=== PATIENT | male | born 1935 | race Caucasian/White ===

== ENCOUNTER 2023-08-22 09:16 | Emergency (ER) | payer MEDICARE, SELFPAY ==
[2023-08-22 09:25] VITALS: BP 156/91; PULSE 88; RESP 20; TEMP 36.1; O2SAT 97
[2023-08-22 09:33] VITALS: BMI 27.1
--- NOTE | 2023-08-22 09:37 | ED_ITS ---
HPI - Back Pain/Injury General Time Seen by Provider: 09:37 Date Seen: 08/22/23 Chief Complaint: Back Injury/Pain Stated Complaint: Back pain, nausea Time Seen by Provider: 08/22/23 09:18 Source: patient, family (daughter brought him in), RN notes reviewed and old records reviewed Mode of arrival: ambulatory Limitations: no limitations History of Present Illness HPI Narrative: This 88-year-old male is somewhat ambulatory into the ED accompanied by his daughter for severe pain. He has had progressive worsening pain in his back. He was given Percocet yesterday, did take this overnight, was up at 2:00 a.m. and took 1, had another 1 at 6:00 a.m. and absolutely did nothing for his pain. He has been diagnosed with spinal metastases of unknown primary. He is sc heduled for a liver biopsy next week. He is denying any radiculopathy down his legs. His primary pain is in his low back, especially right-sided, is wrapping around that right iliac crest area where he is pointing to. He is constipated, has been taking daily MiraLax and Ex-Lax, has tried suppositories. He is not getting any bowel results. He does not remember the last time he had a bowel movement. He has had some nausea but no vomiting. He states he really is not eating much. He denies any chest pain, no difficulty breathing, no chest wall pain, no shortness of breath. He denies any numbness tingling or incoordination of his lower extremities, no pain radiating down the legs. They state he had his imaging done in [place] and then in [place] at [facility]. elicited complaint: back pain Related Data Previous Rx's Medication Instructions Recorded hydromorphone 2 mg tablet 2 mg PO Q4-6H PRN pain #20 tabs 08/22/23 (Dilaudid) Allergies Allergy/AdvReac Type Severity Reaction Status Date / Time No Known Allergies Allergy Verified 08/22/23 13:10 PFSH PFS Social History Smoking Status: Former smoker Do you use any of these nicotine containing products: None Second hand tobacco smoke exposure: No How often do you have a drink containing alcohol: never AUDIT-C Alcohol total score: 0 Non-prescribed substance use: denies use service: No Exam Const: Vital Signs, click to edit/add: Vital Signs - 24 hr 08/22/23 09:25 08/22/23 11:51 08/22/23 12:25 Temperature 97.0 F L Pulse Rate [Pulse Oximeter] 88 80 Respiratory Rate 20 14 Blood Pressure [Ri ght Upper Arm] 156/91 H 138/73 Pulse Oximetry 97 93 92 Oxygen Delivery Me thod Room Air Room Air Course Course ED Course: We will establish an IV, see if he responds to some IV pain medicine with fentanyl 50 mcg, will treat with some Zofran 4 mg. Will start some IV fluids. Reviewed with them that I will look at his imaging reports from outside of here, make decision if he needs abdominal CT versus flat and upright. My inclination is likely flat and upright based on his nontender abdomen. Will check some baseline labs on him, work on pain control imminently. He will be monitored on pulse oximetry given that we are giving him IV narcotics. Reevaluation(s) Time of Reevaluation #1: 11:51 Reevaluation #1: Patient had no relief from the fentanyl. Did discuss hospitalization for pain management. Subsequently reviewed this with Dr. Crump our hospitalist. He can admit the patient for pain management but is worried about disposition. We have no ability to get a tissue diagnosis, cannot get the patient for any palliative radiation. We will talk to facilities that have the capacity to maybe treat him further. Will proceed with IV Dilaudid 0.5 mg. Did review that the flat and upright shows no constipation, he really does not have any significant stool buildup. We reviewed that is poor oral intake is likely reflected in diminished bowel output. Time of Reevaluation #2: 12:56 Reevaluation #2: Patient was able to get himself up and ambulate to the bathroom. He still admits there was pain but it is much better, can actually move without excruciating pain, obviously the IV Dilaudid significantly helped. We are going to try to give him a dose of Tylenol, 1000 mg, and an oral dose of Dilaudid 2 mg right now. Watching him walk back from the bathroom with his walker in get himself into bed, do wonder if perhaps he might be able to discharge to home on dilaudid for ongoing outpatient workup of this malignancy. Have reviewed with them the concerns my hospitalists has about pain management and final disposition, ongoing cancer workup. Have also reviewed with them that I have been in touch with the hospitalist at [facility]. There was concern on his part whether not anything would happen over the weekend. It does sound is if they would like to proceed with continuing on this evaluation for his cancer. They understand that we can not do any palliative treatments with radiation to his spine given there is no tissue diagnosis. He would ultimately half to have a radiation oncology evaluation as well. None of that can happen here in our facility. Likewise, a liver biopsy cannot be arranged inpatient here. The hospitalist is worried that none of this would happen on the weekend at [facility]. He did share with me that the patient's PSA was elevated at 9.66. He wanted radiation oncology as well as Oncology routed into the phone call as well, they will be calling back. My initial conversation with him happened around 12:19 p.m.. Time of Reevaluation #3: 14:22 Reevaluation #3: Patient is feeling much better, feels like he can mobilize. He has been able to sit up. He and his daughter are comfortable going home, he does live independently but she states there is family that can assist and watch out for him. We discussed side effects and risk factors of narcotics including but not limited to confusion, increased risk of falls, constipation. He is to stay on his bowel regimen. Consultations Consultation #1: Did speak with Oncology on-call through [facility] as well as the hospitalist from [facility]. We reviewed the case. The oncologist is worried about patient's social safety, these are new drugs for the patient, could overdose, could be in an unsafe environment. If patient were transferred to [facility], liver biopsy could be considered as a possibility. We did not talk to Radiation Oncology at this point. Right now patient is wait listed, will continue to work on pain management in assess safety on this new narcotic here. I can also talk to his daughter about the possibility of close family involvement. I will let them know we do feel he can discharge to home. Time: 13:14 Vital Signs Vital signs: Initial Vital Signs Temperature 97.0 F L 08/22/23 09:25 Temperature Source Temporal Artery Scan 08/22/23 09:25 Pulse Rate 88 08/22/23 09:25 Pulse Rhythm Regular 08/22/23 09:25 Respiratory Rate 20 08/22/23 09:25 Blood Pressure 156/91 H 08/22/23 09:25 Blood Pressure Mean 112 H 08/22/23 09:25 Blood Pressure Position Supine 08/22/23 09:25 Pulse Oximetry 97 08/22/23 09:25 Oxygen Delivery Method Room Air 08/22/23 09:25 Vital Signs Temperature 97.0 F L 08/22/23 09:25 Pulse Rate 88 08/22/23 09:25 Respiratory Rate 20 08/22/23 09:25 Blood Pressure 156/91 H 08/22/23 09:25 Pulse Oximetry 97 08/22/23 09:25 Oxygen Delivery Method Room Air 08/22/23 09:25 Temperature 97.0 F L 08/22/23 09:25 Pulse Rate 80 08/22/23 12:25 Respiratory Rate 14 08/22/23 12:25 Blood Pressure 138/73 08/22/23 12:25 Pulse Oximetry 92 08/22/23 12:25 Oxygen Delivery Method Room Air 08/22/23 12:25 Medications Administered Medications: Discontinued Medications Generic Name Dose Route Start Last Admin Trade Name Colemanq PRN Reason Stop Dose Admin Acetaminophen 1,000 mg 08/22/23 12:57 08/22/23 13:19 Acetaminophen 500 Mg Tablet PO 08/22/23 12:58 1,000 mg ONCE ONE Administration Hydromorphone HCl 0.5 mg 08/22/23 11:51 08/22/23 12:11 Hydromorphone 0.5 Mg/0.5 Ml Inj IVP 08/22/23 11:52 0.5 mg ONCE ONE Administration Hydromorphone HCl 2 mg 08/22/23 12:57 08/22/23 13:19 Hydromorphone 2 Mg Tablet PO 08/22/23 12:58 2 mg ONCE ONE Administration MDM - Back Pain/Injury Medical Records Attestation: I reviewed the patient's medical records. Medical records narrative: MRI from thoracic spine done on August 17 showing widespread osseous metastases throughout the thoracic spine and visualized ribs. [id number] pathologic T12 compression fracture. Ventral epidural tumor extension mildly narrows the lateral recess and moderately severely narrows the right neural foramina in at T12-L1. Multilevel thoracic spondylosis without high-grade canal stenosis. Findings suggesting mediastinal lymphadenopathy. Chest CT is offered for further evaluation. MRI from a lumbar spine showing diffuse osseous metastasis disease. Findings worrisome for posterior cortical breakthrough at the T12 level with epidural metastatic extension into the right lateral recess and neural foramina. This could be better cyst with dedicated thoracic spine MRI with contrast. Findings concerning for dorsal epidural metastatic spread at the L3-4 level contributing to moderate spinal canal narrowing. Chronic sup erior endplate compression deformities of L3-L4 and lesser degree L5. Moderate to severe multilevel spondylosis Lab Data Attestation: I reviewed the patient's lab results. Labs: Lab Results 08/22/23 Range/Units 10:35 WBC 6.94 (4.50-11.00) K/uL RBC 4.50 (4.30-5.90) m/uL Hgb 13.6 (13.5-17.5) gm/dL Hct 41.1 (37.0-53.0) % MCV 91 (80-100) fL MCH 30 (26-34) pg MCHC 33 (32-36) gm/dL RDW Coeff of Vijay 13.0 (11.5-15.5) % Plt Count 202 (140-440) K/uL Neut % (Auto) 85.7 H (42.0-72.0) % Lymph % (Auto) 10.8 L (20-44) % [place] % (Auto) 3.0 (0.0-11.0) % Eos % (Auto) 0.1 (0.0-7.0) % Baso % (Auto) 0.1 (0.0-3.0) % Neut # (Auto) 5.90 (1.7-7.0) K/uL Lymph # (Auto) 0.70 L (0.90-2.90) K/uL [place] # (Auto) 0.20 (0.00-0.90) K/UL Eos # (Auto) 0.01 (0.00-0.50) K/uL Baso # (Auto) 0.01 (0.00-0.30) K/uL Abs Immat Gran (auto) 0.02 (0.00-0.30) K/uL Imm/Tot Granulo (auto) 0.3 % Sodium 135 (135-149) mmol/L Potassium 4.1 (3.6-5.1) mmol/L Chloride 100 (96-114) mmol/L Carbon Dioxide 29 (20-32) mmol/L Anion Gap 6 L (7-15) mEq/L BUN 28 (7-30) mg/dL Creatinine 0.8 (0.5-1.5) mg/dL Estimated Creat Clear 58.20 Estimated GFR 86 ml/min Glucose 108 (60-115) mg/dL Lactate 1.4 (0.5-1.9) mmol/L Calcium 9.4 (8.4-10.6) mg/dL Total Bilirubin 1.6 H (0.1-1.5) mg/dL AST 165 H (12-35) U/L ALT 258 H (4-50) U/L Alkaline Phosphatase 279 H (40-150) U/L Total Protein 7.0 (6.0-8.3) g/dL Albumin 3.9 (3.3-5.0) g/dL Lipase 20 L (23-300) U/L Imaging Data Abdominal x-ray: Attestation: I have reviewed the pertinent imaging results. My impression: I see no evidence of obstruction or significant stool burden on my preliminary review. Radiologist's impression: Patient: CONNIE ELLIS Facility:?[facility] Patient ID:?[id number] Site Patient ID:?[id number]. Site :?[id number] Study:?XRay Abdomen 2V-08/22/2023 11:09:36 AM Ordering Physician:Audie Whitney Final Report: Indication: Constipation. Severe back pain. Technique: Two views Comparison: None Findings: Nondilated bowel. No significant colonic fecal burden. Clear lung bases. Thoracolumbar spondylosis. Bilateral pelvic calcifications, most likely vascular in nature. Impression: No radiographic finding to explain the clinical history. 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 Take Tylenol 1000 mg 3 times a day baseline for pain. Supplement with the dilaudid for more severe pain, follow prescription instructions. Need to stay on MiraLax 17 g daily, the stool softener. Can also consider use of senna, 1-2 tabs once to twice a day for constipation. Can also use suppositories or enemas as needed for constipation. Need to keep follow-up appointments for your PET scan and your liver biopsy. Should you develop neurologic changes of your lower extremities as we discussed, have uncontrolled pain or further concerns, please seek re-evaluation. Activity Level: Activity as Tolerated Prescriptions: New hydromorphone [Dilaudid] 2 mg tablet 2 mg PO Q4-6H PRN (Reason: pain) Qty: 20 0RF Follow Up/Referrals: Florentin Clarke MD [Staff Physician] - Stand Alone Forms: [employer] Info Instructions
--- NOTE | 2023-08-22 10:10 | CRLHL7_ITS ---
For Patients: As a result of the Century Cures Act, medical imaging exams and procedure reports are released immediately into your electronic medical record. You may view this report before your referring provider. If you have questions, please contact your health care provider. Indication: Constipation. Severe back pain. Technique: Two views Comparison: None Findings: Nondilated bowel. No significant colonic fecal burden. Clear lung bases. Thoracolumbar spondylosis. Bilateral pelvic calcifications, most likely vascular in nature. Impression: No radiographic finding to explain the clinical history. Dictated by Jatinder Goodman MD @ 08/22/2023 11:22:03 AM (Electronically Signed)
--- OUTSIDE RECORDS SUMMARY | 2023-08-22 10:15 | XMS_ITS | Clinical Summary ---
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 Medications Medication Sig Dispensed Refills Start Date End Date Status clotrimazole-betam ethasone cream (LOTRISONE) 1-0.05 % creamIndications:T inea corporis Apply topically to affected area(s) 2 times daily. 45 g 0 11/01/2021 Active hydroCHLOROthiazid e 12.5 mg tabletIndications: Essential hypertension Take 1 Tablet (12.5 mg) by mouth once daily. 90 Tablet 3 12/03/2022 Active fluticasone (50 mcg per actuation) nasal solution (FLONASE)Indicatio ns:Eustachian tube dysfunction, left Inhale 2 Sprays to both nostrils once daily. 16 g 0 01/27/2023 Active cetirizine (ZYRTEC) 10 mg tabletIndications: Eustachian tube dysfunction, left Take 1 Tablet (10 mg) by mouth once daily. 60 Tablet 0 01/27/2023 Active methylPREDNISolone (MEDROL DOSEPAK) 4 mg tabletIndications: Back strain, initial encounter Take by mouth as instructed per packaging: take all tablets together with breakfast. 21 Tablet 0 07/29/2023 Active cyclobenzaprine (FLEXERIL) 5 mg tabletIndications: Back strain, initial encounter Take 1 Tablet (5 mg) by mouth two times daily. 20 Tablet 0 07/29/2023 Active gabapentin (NEURONTIN) 100 mg capsuleIndications :Severe back pain Take 1 Capsule (100 mg) by mouth three times daily. 90 Capsule 2 08/11/2023 4 Active oxyCODONE 10 mg tabletIndications: Metastatic cancer to bone (HC) Take 1 Tablet (10 mg) by mouth every 4 hours if needed for Pain. 20 Tablet 0 08/18/2023 Active oxyCODONE-acetamin ophen, 7.5-325 mg, (Percocet) per tabletIndications: Pain from bone metastases (HC),Metastatic cancer to bone (HC) Take 1 Tablet by mouth every 4 hours if needed for Pain. 10 Tablet 0 08/21/2023 Active oxyCODONE (ROXICODONE) 5 mg immediate release tabletIndications: Severe back pain,Pain from bone metastases (HC) Take 1 Tablet (5 mg) by mouth every 4 hours if needed for Pain. 30 Tablet 0 08/14/2023 4 Discontinue d(*Med ineffective ) Hospital, Clinic, or Other Facility Administered Medication Ordered Dose Route Frequency Start Date End Date Status ketorolac 30 mg injection (TORADOL)Indications:Severe back pain 30 mg IM ONE TIME 08/11/2023 08/11/2023 Ended Active Problems Problem Noted Date Diagnosed Date Essential hypertension 03/01/2020 Other seborrheic keratosis 04/02/2013 Nocturia 04/02/2013 Encounters Date Type Department Care Team Description 08/18/2023 Orders Only [facility] [address] [facility] [address] Gayle Leung DO <No scans attached> 08/17/2023 10:26 AM [facility]TER - 08/17/2023 11:59 PM [facility] Hospital Encounter [facility] [address] [facility] [place] [address] Gayle Leung DO Pain from bone metastases (HC); Metastatic cancer to bone (HC) 08/17/2023 Orders Only [facility] [address] [place] [address] Gayle Leung DO Lab 08/17/2023 Travel 08/16/2023 Nurse Triage [facility] [address] [facility] [address] Gayle Leung DO Back Pain 08/16/2023 Nurse Triage [facility] [address] [facility] [address] Gayle Leung DO Questions 08/15/2023 Orders Only [facility] [address] [place] [address] Gayle Leung, <No scans attached> 08/15/2023 Letter (Out) [facility] Utilization Management [address] [place] [address] No letters found 08/14/2023 Orders Only [facility] [address] [place] [address] Gayle Leung, <No scans attached> 08/14/2023 Telephone [facility] [address] [place] [address] Gayle Leung DO Results 08/13/2023 1:34 PM S[facility]TER - 08/13/2023 11:59 PM [facility]TER Hospital Encounter [facility] [address] [place] [address] Gayle Leung, Severe back pain 08/13/2023 Travel 08/12/2023 Telephone [facility] [address] [place] [address] Gayle Leung DO Results 08/12/2023 Telephone [facility] [address] [facility] [place] [address] Gayle Leung, Results 08/11/2023 4:30 PM [facility]TER Ancillary Procedure [facility] [place] [address] 08/11/2023 3:20 PM S[facility]TER Office Visit [facility] [address] [place] [address] Gayle Leung DO Constipation (Has not had a BM since Sunday 08/06); Back Pain/problem (Back that wraps around to the sides - started before xmas - did lift some softener salt ) 08/11/2023 Travel 07/31/2023 10:30 AM SIGHT MOUNTER Ancillary Procedure [facility] [address] [place] [address] 07/31/2023 9:50 AM SIGHT MOUNTER Office Visit [facility] [address] [place] [address] Lisa Hoover PA Constipation (No BM x6 days) 07/31/2023 Travel 07/30/2023 Telephone [facility] [address] [place] [address] Lisa Hoover PA Constipation 07/29/2023 12:55 PM S[facility] MOUNTER Office Visit [facility] [address] [place] [address] Lisa Hoover PA Back Pain (ongoing for 10 days. lower back, more so on right side. taking tylenol otc with little relief) 07/29/2023 Travel from Last 3 Months Immunizations Name Administration Dates Next Due AMB INFLUENZA IIV3 (AGE 65+ YRS) PF (Flu Clinic Only) 05/10/2019 Amb Influenza, Inactivated A IIV4 (Age 65+ Years) Preserv Free 05/11/2020 COVID-19 vaccine (Maintenance Assistant NTech 30mcg/0.3mL) 12YO+ ARELIS-SUCROSE PF, MDV 12/18/2021 COVID-19 vaccine (Uguru-Yedda NTech 30mcg/0.3mL) PF, MDV 05/14/2021,10/21/2020,09/30/2020 Influenza, High-dose Inactivated 06/02/2018,04/05 Influenza, High-dose Quadriv alent Inactivated 05/16/2023,04/30/2022,05/14/2021 Pneumococcal Poly,23-Valent (Pneumovax) 06/19/20 21 Pneumococcal conj 13-Valent (Prevnar 13) 020 Zoster (Shingrix-RZV, recombinant) 06/04/2022, Family History Relation Name Status Comments Father Mother Social History Tobacco Use Types Packs/Day Years Used Date Smoking Tobacco: Former Cigarettes Q uit: 01/13/2015 Smokeless Tobacco: Never Tobacco Cessation:Counseling Given: Yes Alcohol Use Standard Drinks/Week Comments Yes 0 (1 standard drink = 0.6 oz pure alcohol) has a beer every once and a while mostly summer PHQ-2 Answer Date Recorded PHQ-2 TOTAL SCORE 0 12/03/2022 Social Connections Answer Date Recorded Frequency of Communication with Friends and Fami ly 0 07/29/2023 Financial Resource Strain Answer Date R ecorded Difficulty of Paying Living Expenses 3 07/29/2023 Difficulty of Paying Living Expenses Not on file 07/29/2023 Food Insecurity Answer Date Recorded Worried About Running Out of Food in the Last Ye ar 1 07/29/2023 Transportation Needs Answer Date Record ed Lack of Transportation (Medical) 1 07/29/2023 Housing Stability Answer Date Recorded Unable to Pay for Housing in the Last Year 1 07/29/2023 Sex and Gender Information Value Date Recorded Sex Assigned at Not on file Gender Identity Not on file Sexual Orientation Not on file Obstetrics History Last Filed Vital Signs Vital Sign Reading Time Taken Comments Blood Pressure 145/81 08/11/2023 3:08 PM SIGHT MOUNTER Pulse 99 08/11/2023 3:08 PM SIGHT MOUNTER Temperature 36.6 ??C (97.9 ??F) 01/06/2023 9:51 AM CD T Respiratory Rate 18 05/15/2020 8:52 AM CDT Oxygen Saturation 99% 08/11/2023 3:08 PM SIGHT MOUNTER Inhaled Oxygen Concentration - - Weight 101.2 kg (223 lb) 07/31/2023 9:50 AM SIGHT MOUNTER Height 179 cm (5' 10.47) 12/03/2022 8:30 AM CDT Body Mass Index 31.57 12/03/2022 8:30 AM CDT Plan of Treatment Upcoming Encounters Date Type Department Care Team (Late st Contact Info) Description 08/28/2023 10:00 AM SIGHT MOUNTER Appointment [facility] [address] [facility] [place] [address] 08/29/2023 9:00 AM SIGHT MOUNTER Appointment [facility] [address] [place] [address] Health Maintenance Due Date Last Done Comments Tdap 1946 Tetanus booster 1957 COVID-19 vaccine series (2022-24 season) 2023 05/16/2023, 04/30/2022, 12/18/2021, Additional history exists Medicare Wellness for age 65+ 12/03/2023, 11/01/2021, 03/01/2020 BMI (ht and wt on same day) for age 18+ 12/04/2023 12/03/2022, 11/01/2021, 06/19/2021, Additional history exists Depression screening for age 12+ 12/04/2023 12/03/2022, 11/02/2021, 11/01/2021, Additional history exists Pneumococcal series for age 65+ Completed , 03/01/2020 Zoster (shingles) series for age 50+ Completed 06/04/2022, 03/04/2022 Influenza for age 65+ Completed 05/16/2023 , 04/30/2022, 05/14/2021, Additional history exists Procedures Procedure Name Priority Date/Time Associated Diagnosis Comments CBC WITH AUTO DIFFERENTIAL STAT 08/17/2023 11:04 AM SIGHT MOUNTER Metastatic cancer to bone (HC) HEPATIC FUNCTION PANEL STAT 08/17/2023 11:04 AM SIGHT MOUNTER Metastatic cancer to bone (HC) BASIC METABOLIC PANEL STAT 08/17/2023 11:04 AM SIGHT MOUNTER Metastatic cancer to bone (HC) CBC WITH AUTO DIFFERENTIAL STAT 08/17/2023 11:04 AM SIGHT MOUNTER Metastatic cancer to bone (HC) CT CHEST ABDOMEN PELVIS W STAT 08/17/2023 10:59 AM SIGHT MOUNTER Metastatic cancer to bone (HC) CREATININE,ISTAT Timed 08/17/2023 10:4 2 AM SIGHT MOUNTER MR SPINE THORACIC WWO STAT 08/17/2023 10:27 AM SIGHT MOUNTER Pain from bone metastases (HC) MR SPINE LUMBAR WO ANJEL 08/13/2023 2: 24 PM SIGHT MOUNTER Severe back pain XR ABDOMEN 1 VIEW Routine 08/11/2023 4:3 8 PM SIGHT MOUNTER Constipation, acute PSA TOTAL (DIAGNOSTIC) Routine 08/11/2023 4:23 PM SIGHT MOUNTER Elevated PSA XR ABDOMEN 2 VIEW FLAT AND UPRIGHT OR DECUBITUS Routine 07/31/2023 10:31 AM SIGHT MOUNTER Constipation, acute from Last 3 Months Results * CBC WITH AUTO DIFFERENTIAL (08/17/2023 11:04 AM SIGHT MOUNTER) WHITE BLOOD COUNT 6.0 4.5 - 11.0 thou/cu mm 08/17/2023 11:15 AM [facility] RED BLOOD COUNT 4.45 4.30 - 5.90 mil/cu mm 08/17/2023 11:15 AM [facility] HEMOGLOBIN 13.6 13.5 - 17.5 g/dL 08/17/2023 11:15 AM [facility] HEMATOCRIT 39.8 37.0 - 53.0 % 08/17/2023 11:15 AM [facility] MCV 89 80 - 100 fL 08/17/2023 11:15 AM [facility] MCH 30.6 26.0 - 34.0 pg 08/17/2023 11:15 AM [facility] MCHC 34.2 32.0 - 36.0 g/dL 08/17/2023 11:15 AM [facility] RDW 13.0 11.5 - 15.5 % 08/17/2023 11:15 AM [facility] PLATELET COUNT 208 140 - 440 thou/cu mm 08/17/2023 11:15 AM [facility] MPV 8.8 6.5 - 11.0 fL 08/17/2023 11:15 AM [facility] NRBC 0.0 % 08/17/2023 11:15 AM [facility] ABS NRBC 0.0 thou /cu mm 08/17/2023 11:15 AM [facility] % NEUT 77.8 % 08/17/2023 11:15 AM [facility] % LYMPH 17.1 % 08/17/2023 11:15 AM [facility] % MONO 3.9 % 08/17/2023 11:15 AM [facility] % EOS 0.5 % 08/17/2023 11:15 AM [facility] % BASO 0.2 % 08/17/2023 11:15 AM [facility] % IMMATURE GRAN (METAS,MYELOS,GA OS) 0.5 % 08/17/2023 11:15 AM [facility] ABSOLUTE NEUTROPHILS 4.6 1.7 - 7.0 thou/cu mm 08/17/2023 11:15 AM [facility] ABSOLUTE LYMPHOCYTES 1.0 0.9 - 2.9 thou/cu mm 08/17/2023 11:15 AM [facility] ABSOLUTE MONOCYTES 0.2 <0.9 thou/cu mm 08/17/2023 11:15 AM [facility] ABSOLUTE EOSINOPHILS 0.0 <0.5 thou/cu mm 08/17/2023 11:15 AM [facility] ABSOLUTE BASOPHILS 0.0 <0.3 thou/cu mm 08/17/2023 11:15 AM [facility] ABSOLUTE IMMATURE GRANULOCYTES(MET ,MYELOS,PROS) 0.0 <0.3 thou/cu mm 08/17/2023 11:15 AM [facility] Blood BLOOD SPECIMEN / Unknown Butterfly / Unknown 08/17/2023 11:04 AM SIGHT MOUNTER 08/17/2023 11:04 AM SIGHT MOUNTER Narrative [facility] - 08/17/2023 11:15 AM [facility] This procedure was originally ordered at [facility]. Gayle Leung DO HEMATOLOGY [facility] [address] [place] [address] * (ABNORMAL) HEPATIC FUNCTION PANEL (08/17/2023 11:04 AM SIGHT MOUNTER) ALBUMIN 3.6(L) 4.0 - 4.9 g/dL 08/17/2023 11:33 AM SIGHT MOUNTER [facility] PROTEIN,TOTAL 6.4 6.0 - 8.0 g/dL 08/17/2023 11:33 AM [facility] BILIRUBIN,TOTAL 1.4(H) 0.0 - 1.2 mg/dL 08/17/2023 11:33 AM [facility] BILIRUBIN,DIRECT 0.8(H) 0.0 - 0.3 mg/dL 08/17/2023 11:33 AM SIGHT MOUNTER [facility] BILIRUBIN,INDIRE CT 0.6 0.2 - 0.8 mg/dL 08/17/2023 11:33 AM [facility] ALK PHOSPHATASE 298(H) 40 - 129 IU/L 08/17/2023 11:33 AM [facility] ALT (SGPT) 203(H) 10 - 50 IU/L 08/17/2023 11:33 AM [facility] AST (SGOT) 211(H) 10 - 50 IU/L 08/17/2023 11:33 AM [facility] Blood BLOOD SPECIMEN / Unknown Butterfly / Unknown 08/17/2023 11:04 AM S[facility] MOUNTER 08/17/2023 11:04 AM [facility] Gayle Leung DO CHEMISTRY [facility] [address] [place] [address] * (ABNORMAL) BASIC METABOLIC PANEL (08/17/2023 11:04 AM SIGHT MOUNTER) SODIUM 133(L) 136 - 145 mmol/L 08/17/2023 11:33 AM [facility] POTASSIUM 4.3 3.5 - 5.1 mmol/L 08/17/2023 11:33 AM [facility] CHLORIDE 95(L) 98 - 107 mmol/L 08/17/2023 11:33 AM [facility] CO2,TOTAL 27 22 - 29 mmol/L 08/17/2023 11:33 AM [facility] ANION GAP 11 5 - 18 08/17/2023 11:33 AM [facility] GLUCOSE 101(H) 70 - 99 mg/dL 08/17/2023 11:33 AM [facility] CALCIUM 9.5 8.8 - 10.2 mg/dL 08/17/2023 11:33 AM [facility] BUN 27(H) 8 - 23 mg/dL 08/17/2023 11:33 AM [facility] CREATININE 1.02 0.70 - 1.20 mg/dL 08/17/2023 11:33 AM [facility] BUN/CREAT RATIO 26(H) 10 - 20 11:33 AM [facility] eGFR 72(L) >90 mL/min/1.7 3m2 08/17/2023 11:33 AM [facility] Comment:As of 2021, eG FR is calculated by the CKD-EPI creatinine equation without race adjustment. ??eGFR can be influenced by muscle mass, exercise, and diet. ??The reported eGFR is an estimation only and is only applicable if the renal function is stable. Blood BLOOD SPECIMEN / Unknown Butterfly / Unknown 08/17/2023 11:04 AM SIGHT MOUNTER 08/17/2023 11:04 AM SIGHT MOUNTER Gayle Leung DO CHEMISTRY [place] [id number] [place] [address] * CT CHEST ABDOMEN PELVIS W (08/17/2023 10:59 AM SIGHT MOUNTER) Anatomical Region Laterality Modality Abdomen, Pelvis, AORTA, LIVER, SPLEEN, CHEST Computed Tomography 08/17/2023 11:3 6 AM SIGHT MOUNTER Narrative 08/17/2023 11:36 AM SIGHT MOUNTER For Patients: ??As a result of the Century Cures Act, medical imaging exams and procedure reports are released immediately into your electronic medical record. ??You may view this report before your referring provider. ??If you have questions, please contact your health care provider. INDICATION: Metastatic cancer to bone, unknown primary. TECHNIQUE: Multiple axial images were obtained from the apices to the symphysis pubis after administration of 100 of Omnipaque 350 intravenously. Sagittal and coronal re-formatted images were obtained. COMPARISON: Abdomen plain films done 08/11/2023. MRI thoracic and lumbar spine done earlier the same day. Findings: Chest: There are the least 4 pulmonary nodes seen in the right upper lobe anteriorly on images #73-83 of series 4 largest nodule on image number 74 measuring 1.3 cm and the second largest nodule on image #79 measuring 1 cm. In the left lobe on image number 130 of series 4 there is a 0.5 cm pulmonary nodule. There is scarring in the right lower and middle lobe. There is no acute infiltrate. There is no pleural effusion. There is no endobronchial lesion. There are atherosclerotic calcifications. There is a gynecomastia bilaterally. There is no axillary adenopathy. There is an enlarged right paratracheal lymph node measuring 5.0 x 4.5 cm on image #55 of series 3. There is also an enlarge the right suprahilar lymph node measuring 3.4 x 2.9 cm. There is no left hilar adenopathy. Abdomen and pelvis: There are 3 low-dense lesion seen in segment 4B of the liver largest measuring 1.6 cm on image #49 of series 8. In segment 3 on image #44 of series 8 there is a 1 cm low-dense lesion. There are tiny low-dense lesions in the segment 5 of the liver. The spleen and pancreas are unremarkable. The gallbladder is absent. There is mild intra and extrahepatic bili dilatation which is likely related to a reservoir effect. There is a 2.2 cm nodule in the left adrenal gland. There are parapelvic and cortical cysts in the left kidney. There is no hydronephrosis. There is no evidence of a bowel obstruction. The abdominal aorta is normal in caliber. There are atherosclerotic calcifications. There is no adenopathy seen in the abdomen or pelvis. There are non pathologic enlarged retroperitoneal lymph nodes. The prostate gland is enlarged measuring 6.4 x 6.0 x 8.0 cm. There are calcifications in the prostate gland. There is no free fluid or pelvis. There multiple lesions in the thoracic and spine which better evaluate on the previous MRI. There are degenerative the spine. There are compression deformities of the T12, L3, L4 and L5 vertebral bodies which were also seen on the previous MRI. There are bone lesions in the sacrum. There is a bone lesion by the right acetabulum posteriorly and right inferior pubic ramus. There are bone lesion in the femoral necks bilaterally. There are bone lesions in the iliac bones bilaterally. Impression: 1. Enlarged right paratracheal and right suprahilar lymph nodes consistent with a malignancy/metastasis. 2. Pulmonary nodules in the right upper lobe and left lower lobe. Consistent with metastases. 3. Multiple low-dense lesions in the liver largest in segment 4B consistent with metastases. 4. Multiple bone lesions in the thoracic and lumbar spine as well as in the sacrum, iliac bones and right pubic ramus and bilateral femoral necks consistent with metastases. 5. 2.2 cm lesion in the left adrenal gland is not fully characterized on this study. Metastasis cannot be excluded. 6. Enlarged prostate gland. 7. Left kidney cysts. Please note that all CT scans at this facility use dose modulation, iterative reconstruction, and/or weight-based dosing when appropriate to reduce radiation dose to as low as reasonably achievable. Dictated by Chris Proctor MD @ 08/17/2023 11:36:40 AM (Electronically Signed) Procedure Note Chris Proctor MD - 08/17/2023 For Patients: As a result of the 21st Century Cures Act, medical imagingexams and procedure reports are released immediately into your electronicmedical record. You may view this report before your referring provider.If you have questions, please contact your health care provider. INDICATION: Metastatic cancer to bone, unknown primary. TECHNIQUE: Multiple axial images were obtained from the apices to the symphysis pubisafter administration of 100 of Omnipaque 350 intravenously. Sagittal andcoronal re-formatted images were obtained. COMPARISON: Abdomen plain films done 08/11/2023. MRI thoracic and lumbar spine doneearlier the same day. Findings: Chest: There are the least 4 pulmonary nodes seen in the right upper lobeanteriorly on images #73-83 of series 4 largest nodule on image number 74measuring 1.3 cm and the second largest nodule on image #79 measuring 1cm. In the left lobe on image number 130 of series 4 there is a 0.5 cmpulmonary nodule. There is scarring in the right lower and middle lobe.There is no acute infiltrate. There is no pleural effusion. There is noendobronchial lesion. There are atherosclerotic calcifications. There is agynecomastia bilaterally. There is no axillary adenopathy. There is anenlarged right paratracheal lymph node measuring 5.0 x 4.5 cm on image #55of series 3. There is also an enlarge the right suprahilar lymph nodemeasuring 3.4 x 2.9 cm. There is no left hilar adenopathy. Abdomen and pelvis: There are 3 low-dense lesion seen in segment 4B of the liver largestmeasuring 1.6 cm on image #49 of series 8. In segment 3 on image #44 ofseries 8 there is a 1 cm low-dense lesion. There are tiny low-denselesions in the segment 5 of the liver. The spleen and pancreas areunremarkable. The gallbladder is absent. There is mild intra andextrahepatic bili dilatation which is likely related to a reservoireffect. There is a 2.2 cm nodule in the left adrenal gland. There areparapelvic and cortical cysts in the left kidney. There is nohydronephrosis. There is no evidence of a bowel obstruction. The abdominalaorta is normal in caliber. There are atherosclerotic calcifications.There is no adenopathy seen in the abdomen or pelvis. There are nonpathologic enlarged retroperitoneal lymph nodes. The prostate gland isenlarged measuring 6.4 x 6.0 x 8.0 cm. There are calcifications in theprostate gland. There is no free fluid or pelvis. There multiple lesions in the thoracic and spine which better evaluate onthe previous MRI. There are degenerative the spine. There are compressiondeformities of the T12, L3, L4 and L5 vertebral bodies which were alsoseen on the previous MRI. There are bone lesions in the sacrum. There is abone lesion by the right acetabulum posteriorly and right inferior pubicramus. There are bone lesion in the femoral necks bilaterally. There arebone lesions in the iliac bones bilaterally. Impression: 1. Enlarged right paratracheal and right suprahilar lymph nodes consistentwith a malignancy/metastasis. 2. Pulmonary nodules in the right upper lobe and left lower lobe.Consistent with metastases. 3. Multiple low-dense lesions in the liver largest in segment 4Bconsistent with metastases. 4. Multiple bone lesions in the thoracic and lumbar spine as well as inthe sacrum, iliac bones and right pubic ramus and bilateral femoral necksconsistent with metastases. 5. 2.2 cm lesion in the left adrenal gland is not fully characterized onthis study. Metastasis cannot be excluded. 6. Enlarged prostate gland. 7. Left kidney cysts. Please note that all CT scans at this facility use dose modulation,iterative reconstruction, and/or weight-based dosing when appropriate toreduce radiation dose to as low as reasonably achievable. Dictated by Chris Proctor MD @ 08/17/2023 11:36:40 AM (Electronically Signed) Gayle Leung DO CT * CREATININE,ISTAT (08/17/2023 10:42 AM SIGHT MOUNTER) CREATININE, POCT 0.60 0.57 - 1.11 mg/dL 08/17/2023 10:46 AM SIGHT MOUNTER [facility] eGFR >90 >90 mL/min/1.7 3m2 08/17/2023 10:46 AM SIGHT MOUNTER [facility] Comment:As of 2021, eG FR is calculated by the CKD-EPI creatinine equation without race adjustment. eGFR can be influenced by muscle mass, exercise, and diet. The reported eGFR is an estimation only and is only applicable if the renal function is stable. Blood BLOOD SPECIMEN / Unknown 08/17/2023 10:42 AM SIGHT MOUNTER 08/17/2023 10:46 AM SIGHT MOUNTER Gayle Leung DO CHEMISTRY [address] [address] * MR SPINE THORACIC WWO (08/17/2023 10:27 AM SIGHT MOUNTER) Anatomical Region Laterality Modality Spine, THORACIC SPINE Magnetic R esonance 08/17/2023 10:4 2 AM SIGHT MOUNTER Impressions 08/17/2023 10:42 AM SIGHT MOUNTER 1. Widespread osseous metastases throughout the thoracic spine and visualized ribs. 2. Weog-gs-ounldcxa pathologic T12 compression fracture. Ventral epidural tumor extension mildly narrows the lateral recess and moderately severely narrows the right neural foramen at T12-L1. 3. Multilevel thoracic spondylosis without high-grade spinal canal stenosis. 4. Findings suggesting mediastinal lymphadenopathy. Chest CT is offered for further evaluation. Dictated by Alex Pacheco MD @ 08/17/2023 10:42:37 AM (Electronically Signed) Narrative 08/17/2023 10:42 AM SIGHT MOUNTER For Patients: ??As a result of the Cures Act, medical imaging exams and procedure reports are released immediately into your electronic medical record. ??You may view this report before your referring provider. ??If you have questions, please contact your health care provider. INDICATION: Pain from bone metastases. TECHNIQUE: Multiplanar multisequence MR imaging of the thoracic spine prior to and following intravenous contrast. COMPARISON: MRI lumbar spine 08/13/2023. FINDINGS: Numerous T1 hypointense, STIR hyperintense, enhancing lesions throughout the vertebral bodies, posterior elements, and visualized ribs, compatible with widespread osseous metastases. There is near complete replacement of several thoracic vertebral bodies. Wkkk-el-rsguwhhv T12 compression fracture. Ventral epidural tumor minimally narrows the spinal canal at the T7 level and mildly narrows the right T7-8 neural foramen. Ventral epidural tumor extension minimally narrows the spinal canal, mildly narrows the right lateral recess, and moderately severely narrows the right neural foramen at T12-L1. Abbi-wz-oaypfdrret exaggerated thoracic kyphosis. Mild rightward thoracic curvature. Diffuse disc degeneration. Mild multilevel facet arthropathy. The thoracic cord is normal in signal intensity. No high-grade spinal canal stenosis. Suggested masslike lesions in the visualized mediastinum. Procedure Note Alex Pacheco MD - 08/17/2023 For Patients: As a result of the Cures Act, medical imagingexams and procedure reports are released immediately into your electronicmedical record. You may view this report before your referring provider.If you have questions, please contact your health care provider. INDICATION: Pain from bone metastases. TECHNIQUE: Multiplanar multisequence MR imaging of the thoracic spine prior to andfollowing intravenous contrast. COMPARISON: MRI lumbar spine 08/13/2023. FINDINGS: Numerous T1 hypointense, STIR hyperintense, enhancing lesions throughoutthe vertebral bodies, posterior elements, and visualized ribs, compatiblewith widespread osseous metastases. There is near complete replacement ofseveral thoracic vertebral bodies. Gyeq-us-yztewmxo T12 compressionfracture. Ventral epidural tumor minimally narrows the spinal canal at theT7 level and mildly narrows the right T7-8 neural foramen. Ventralepidural tumor extension minimally narrows the spinal canal, mildlynarrows the right lateral recess, and moderately severely narrows theright neural foramen at T12-L1. Jnzl-yz-uvjigkqmts exaggerated thoracic kyphosis. Mild rightward thoraciccurvature. Diffuse disc degeneration. Mild multilevel facet arthropathy.The thoracic cord is normal in signal intensity. No high-grade spinal canal stenosis. Suggested masslike lesions in the visualized mediastinum. IMPRESSION: 1. Widespread osseous metastases throughout the thoracic spine andvisualized ribs. 2. Denf-oq-cfdcwajf pathologic T12 compression fracture. Ventral epiduraltumor extension mildly narrows the lateral recess and moderately severelynarrows the right neural foramen at T12-L1. 3. Multilevel thoracic spondylosis without high-grade spinal canalstenosis. 4. Findings suggesting mediastinal lymphadenopathy. Chest CT is offeredfor further evaluation. Dictated by Alex Pacheco MD @ 08/17/2023 10:42:37 AM (Electronically Signed) Gayle Leung DO MR * MR SPINE LUMBAR WO (08/13/2023 2:24 PM SIGHT MOUNTER) Anatomical Region Laterality Modality Spine, LUMBAR SPINE Magnetic Res onance 08/13/2023 3:20 PM SIGHT MOUNTER Addenda Addendum by Duarte Medley DO on 08/13/2023 4:53 PM SIGHT MOUNTER Indication: Severe back pain. Technique: Multiplanar, multisequence MRI of the lumbar spine was performed without intravenous contrast. Comparison: Radiographs 08/11/2023. Findings: There are 5 lumbar-type vertebral segments identified. Moderate chronic compression deformities involving the L3 and L4 as well as lesser degree L5 vertebral bodies. There is extensive T1 hypointense marrow infiltrating lesions throughout the visualized osseous structures. This mostly involves the T12 in S2 vertebral levels. The conus medullaris terminates at L1, normal. Cauda equina appears unremarkable. T12-L1: There is posterior cortical bowing and cortical breakthrough at the T12 level. Findings concerning for epidural metastatic spread within the right lateral recess and neural foramen our full extent is not assessed on axial imaging. L1-2: Central disc extrusion with 9 mm superior migration. Minimal disc bulge results in minimal spinal canal narrowing. Mild neural foraminal narrowing. L2-3: Disc degeneration with facet hypertrophy is ultimately in moderate spinal canal narrowing. Mild to moderate left and mild right neural foraminal narrowing. Moderate facet arthropathy. L3-4: ??Disc degeneration, with facet hypertrophy and ligamentum flavum thickening. There is abnormal signal identified within the dorsal epidural space related to adjacent marrow infiltrating process suggesting epidural metastases. This combined with degeneration result in moderate spinal canal stenosis. Mild neural foraminal narrowing. L4-5: Disc degeneration. Disc bulge couple ligamental thickening and facet hypertrophy resulting in moderate spinal canal narrowing. Mild neural foraminal narrowing. L5-S1: ??Disc degeneration. Shallow right subarticular and foraminal disc protrusion with mild right lateral recess narrowing. No neural foraminal narrowing. Moderate facet arthropathy. Mild sacroiliac joint osteoarthritis. Impression: 1. Diffuse osseous metastatic disease. 2. Findings worrisome for posterior cortical breakthrough at the T12 level with epidural metastatic extension into the right lateral recess and neural foramen. This could be better assessed with dedicated thoracic spine MRI with contrast. 3. Findings concerning for dorsal epidural metastatic spread at the L3-4 level contributing to moderate spinal canal narrowing. 4. Chronic superior endplate compression deformities of L3, L4 and lesser degree L5. 5. Moderate to severe multilevel spondylosis. Dictated by Duarte Medley MD @ 08/13/2023 3:20:22 PM ----- ADDENDUM ----- Addendum: ??Results Communication by Fax: The results were conveyed by fax to Dr. Gayle Leung on 08/13/2023 at 1525 hours, with confirmation of fax receipt. Dictated by Duarte Medley MD @ Aug 13 2023 ??4:51PM (Electronically Signed) Narrative 08/13/2023 3:20 PM SIGHT MOUNTER For Patients: ??As a result of the Cures Act, medical imaging exams and procedure reports are released immediately into your electronic medical record. ??You may view this report before your referring provider. ??If you have questions, please contact your health care provider. Indication: Severe back pain. Technique: Multiplanar, multisequence MRI of the lumbar spine was performed without intravenous contrast. Comparison: Radiographs 08/11/2023. Findings: There are 5 lumbar-type vertebral segments identified. Moderate chronic compression deformities involving the L3 and L4 as well as lesser degree L5 vertebral bodies. There is extensive T1 hypointense marrow infiltrating lesions throughout the visualized osseous structures. This mostly involves the T12 in S2 vertebral levels. The conus medullaris terminates at L1, normal. Cauda equina appears unremarkable. T12-L1: There is posterior cortical bowing and cortical breakthrough at the T12 level. Findings concerning for epidural metastatic spread within the right lateral recess and neural foramen our full extent is not assessed on axial imaging. L1-2: Central disc extrusion with 9 mm superior migration. Minimal disc bulge results in minimal spinal canal narrowing. Mild neural foraminal narrowing. L2-3: Disc degeneration with facet hypertrophy is ultimately in moderate spinal canal narrowing. Mild to moderate left and mild right neural foraminal narrowing. Moderate facet arthropathy. L3-4: ??Disc degeneration, with facet hypertrophy and ligamentum flavum thickening. There is abnormal signal identified within the dorsal epidural space related to adjacent marrow infiltrating process suggesting epidural metastases. This combined with degeneration result in moderate spinal canal stenosis. Mild neural foraminal narrowing. L4-5: Disc degeneration. Disc bulge couple ligamental thickening and facet hypertrophy resulting in moderate spinal canal narrowing. Mild neural foraminal narrowing. L5-S1: ??Disc degeneration. Shallow right subarticular and foraminal disc protrusion with mild right lateral recess narrowing. No neural foraminal narrowing. Moderate facet arthropathy. Mild sacroiliac joint osteoarthritis. Impression: 1. Diffuse osseous metastatic disease. 2. Findings worrisome for posterior cortical breakthrough at the T12 level with epidural metastatic extension into the right lateral recess and neural foramen. This could be better assessed with dedicated thoracic spine MRI with contrast. 3. Findings concerning for dorsal epidural metastatic spread at the L3-4 level contributing to moderate spinal canal narrowing. 4. Chronic superior endplate compression deformities of L3, L4 and lesser degree L5. 5. Moderate to severe multilevel spondylosis. Dictated by Duarte Medley MD @ 08/13/2023 3:20:22 PM (Electronically Signed) Procedure Note Duarte Medley, DO - 08/13/2023 For Patients: As a result of the 21st Century Cures Act, medical imagingexams and procedure reports are released immediately into your electronicmedical record. You may view this report before your referring provider.If you have questions, please contact your health care provider. Indication: Severe back pain. Technique: Multiplanar, multisequence MRI of the lumbar spine was performed withoutintravenous contrast. Comparison: Radiographs 08/11/2023. Findings: There are 5 lumbar-type vertebral segments identified. Moderate chroniccompression deformities involving the L3 and L4 as well as lesser degreeL5 vertebral bodies. There is extensive T1 hypointense marrow infiltratinglesions throughout the visualized osseous structures. This mostly involvesthe T12 in S2 vertebral levels. The conus medullaris terminates at L1, normal. Cauda equina appearsunremarkable. T12-L1: There is posterior cortical bowing and cortical breakthrough atthe T12 level. Findings concerning for epidural metastatic spread withinthe right lateral recess and neural foramen our full extent is notassessed on axial imaging. L1-2: Central disc extrusion with 9 mm superior migration. Minimal discbulge results in minimal spinal canal narrowing. Mild neural foraminalnarrowing. L2-3: Disc degeneration with facet hypertrophy is ultimately in moderatespinal canal narrowing. Mild to moderate left and mild right neuralforaminal narrowing. Moderate facet arthropathy. L3-4: Disc degeneration, with facet hypertrophy and ligamentum flavumthickening. There is abnormal signal identified within the dorsal epiduralspace related to adjacent marrow infiltrating process suggesting epiduralmetastases. This combined with degeneration result in moderate spinalcanal stenosis. Mild neural foraminal narrowing. L4-5: Disc degeneration. Disc bulge couple ligamental thickening and facethypertrophy resulting in moderate spinal canal narrowing. Mild neuralforaminal narrowing. L5-S1: Disc degeneration. Shallow right subarticular and foraminal discprotrusion with mild right lateral recess narrowing. No neural foraminalnarrowing. Moderate facet arthropathy. Mild sacroiliac joint osteoarthritis. Impression: 1. Diffuse osseous metastatic disease. 2. Findings worrisome for posterior cortical breakthrough at the T12 levelwith epidural metastatic extension into the right lateral recess andneural foramen. This could be better assessed with dedicated thoracicspine MRI with contrast. 3. Findings concerning for dorsal epidural metastatic spread at the L3-4level contributing to moderate spinal canal narrowing. 4. Chronic superior endplate compression deformities of L3, L4 and lesserdegree L5. 5. Moderate to severe multilevel spondylosis. Dictated by Duarte Medley MD @ 08/13/2023 3:20:22 PM (Electronically Signed) Gayle Leung DO MR * XR ABDOMEN 1 VIEW (08/11/2023 4:38 PM SIGHT MOUNTER) Anatomical Region Laterality Modality Abdomen Computed Radiogr aphy 08/11/2023 4:41 PM SIGHT MOUNTER Impressions 08/11/2023 4:41 PM SIGHT MOUNTER Nonspecific bowel gas pattern without obstruction or ileus. No significant colonic constipation identified. Dictated by Roberto Daniel MD @ 08/11/2023 4:41:40 PM (Electronically Signed) Narrative 08/11/2023 4:41 PM SIGHT MOUNTER For Patients: ??As a result of the Cures Act, medical imaging exams and procedure reports are released immediately into your electronic medical record. ??You may view this report before your referring provider. ??If you have questions, please contact your health care provider. INDICATION: Acute constipation. TECHNIQUE: Supine view of the abdomen and pelvis. FINDINGS: Nonspecific bowel gas pattern without obstruction or ileus. Scattered gas and stool throughout portions of the colon and rectum. No fecal impaction. No significant colonic constipation. Vascular calcification in the abdomen and pelvis both arterial and venous. Skeletal demineralization of the pelvis and hips. Degenerative arthritis and hypertrophic spurring of the lumbar spine. Procedure Note Roberto Daniel MD - 08/11/2023 For Patients: As a result of the Cures Act, medical imagingexams and procedure reports are released immediately into your electronicmedical record. You may view this report before your referring provider.If you have questions, please contact your health care provider. INDICATION: Acute constipation. TECHNIQUE: Supine view of the abdomen and pelvis. FINDINGS: Nonspecific bowel gas pattern without obstruction or ileus. Scattered gasand stool throughout portions of the colon and rectum. No fecal impaction.No significant colonic constipation. Vascular calcification in the abdomenand pelvis both arterial and venous. Skeletal demineralization of thepelvis and hips. Degenerative arthritis and hypertrophic spurring of thelumbar spine. IMPRESSION: Nonspecific bowel gas pattern without obstruction or ileus. No significant colonic constipation identified. Dictated by Roberto Daniel MD @ 08/11/2023 4:41:40 PM (Electronically Signed) Gayle Leung DO GENERAL IMAGING * (ABNORMAL) PSA TOTAL (DIAGNOSTIC) (08/11/2023 4:23 PM SIGHT MOUNTER) PSA TOTAL (DIAGNOSTIC) 9.66(H) <4.00 ng/mL 08/12/2023 1:55 PM SIGHT MOUNTER [facility] Blood BLOOD SPECIMEN / Unknown Venipuncture / Unknown 08/11/2023 4:23 PM SIGHT MOUNTER 08/11/2023 4:25 PM SIGHT MOUNTER Narrative [facility] - 08/12/2023 1:55 PM SIGHT MOUNTER The test method changed on 01/28/2023. If this test has been used for serial monitoring, rebaselining is recommended. Rebaselining consists of 2 measurements, collected 3-6 weeks apart. The [employer] total PSA assay is an electrochemiluminescence immunoassay ECLIA performed on the [employer] Mango e immunoassay analyzers. Values obtained with different assay methods may be different and cannot be used interchangeably. Gayle Leung DO [facility]MI[facility] [address] [place] [address], * XR ABDOMEN 2 VIEW FLAT AND UPRIGHT OR DECUBITUS (07/31/2023 10:31 AM SIGHT MOUNTER) Anatomical Region Laterality Modality Abdomen Computed Radiogr aphy 07/31/2023 10:4 1 AM SIGHT MOUNTER Narrative 07/31/2023 10:41 AM SIGHT MOUNTER For Patients: ??As a result of the Century Cures Act, medical imaging exams and procedure reports are released immediately into your electronic medical record. ??You may view this report before your referring provider. ??If you have questions, please contact your health care provider. Indication: Constipation, acute Technique: Abdomen 2 view. Comparison: None. Findings: No pleural effusion. Bilateral kidney stones suspected. Pelvic phleboliths. Degenerative changes. Moderate colonic stool. No dilated small bowel loops. No free air. Impression: Moderate diffuse colonic stool suggesting constipation. No mechanical obstruction. Bilateral nephrolithiasis suspected. Dictated by Wang Myers MD @ 07/31/2023 10:41:00 AM (Electronically Signed) Procedure Note Wang Myers MD - 07/31/2023 For Patients: As a result of the Cures Act, medical imagingexams and procedure reports are released immediately into your electronicmedical record. You may view this report before your referring provider.If you have questions, please contact your health care provider. Indication: Constipation, acute Technique: Abdomen 2 view. Comparison: None. Findings: No pleural effusion. Bilateral kidney stones suspected. Pelvicphleboliths. Degenerative changes. Moderate colonic stool. No dilatedsmall bowel loops. No free air. Impression: Moderate diffuse colonic stool suggesting constipation. No mechanicalobstruction. Bilateral nephrolithiasis suspected. 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
[2023-08-22 10:44] LABS: Basophils Absolute Auto 0.01 K/uL (0.00-0.30); Basophils Percent Auto 0.1 % (0.0-3.0); Eosinophils Absolute Auto 0.01 K/uL (0.00-0.50); Eosinophils Percent Auto 0.1 % (0.0-7.0); Hematocrit 41.1 % (37.0-53.0); Hemoglobin* 13.6 gm/dL (13.5-17.5); Immature Granulocytes Abs Auto 0.02 K/uL (0.00-0.30); Immature Granulocytes Pct Auto 0.3 %; Lactate* 1.4 mmol/L (0.5-1.9); Lymphocytes Percent Auto 10.8 % (20-44); Mean Corpuscular HGB Conc 33 gm/dL (32-36); Mean Corpuscular Hemoglobin 30 pg (26-34); Mean Corpuscular Volume 91 fL (80-100); Neutrophils Percent Auto 85.7 % (42.0-72.0); Platelet Count* 202 K/uL (140-440); White Blood Count* 6.94 K/uL (4.50-11.00)
[2023-08-22 10:51] LABS: Slide Review Reflex No
[2023-08-22 10:58] LABS: Albumin* 3.9 g/dL (3.3-5.0); Chloride* 100 mmol/L (96-114)
[2023-08-22 10:59] LABS: Potassium* 4.1 mmol/L (3.6-5.1); Sodium* 135 mmol/L (135-149)
[2023-08-22 11:01] LABS: Alkaline Phosphatase* 279 U/L (40-150); Anion Gap 6 mEq/L (7-15); Aspartate Amino Transferase* 165 U/L (12-35); Bilirubin Total* 1.6 mg/dL (0.1-1.5); Blood Urea Nitrogen* 28 mg/dL (7-30); Carbon Dioxide* 29 mmol/L (20-32); Creatinine* 0.8 mg/dL (0.5-1.5); Estimated Glomerular Filt Rate 86 ml/min; Glucose* 108 mg/dL (60-115); Lipase* 20 U/L (23-300)
[2023-08-22 11:02] LABS: Alanine Aminotransferase* 258 U/L (4-50); Calcium* 9.4 mg/dL (8.4-10.6)
[2023-08-22 11:51] VITALS: O2SAT 93
[2023-08-22] MEDS: HYDROmorphone 0.5 mg/0.5 ml inj IVP (12:11)
[2023-08-22 12:25] VITALS: BP 138/73; PULSE 80; RESP 14; O2SAT 92
[2023-08-22] MEDS: HYDROmorphone 2 MG TABLET PO (13:19)
[2023-08-22] MEDS: ACETAMINOPHEN 500 MG TABLET 1000 MG PO (13:19)
--- NOTE | 2023-08-22 14:08 | PC.NURSE ---
Patient reporting improvement in pain after medication. Stated he was able to sit up with minimal pain. Dr. Howard updated.
--- NOTE | 2023-08-22 15:50 | ED.NURSE ---
pt family called in wondering about the location of the RX for pain medication. I confirmed that the medication had been electronically sent to the [facility] in [place]. While on the phone with the family member, [facility] found the RX.
== END 2023-08-22 14:40 | disposition home or self-care (01) ==
PROVIDERS: Emergency Provider Family Medicine; PCP Student in an Organized Health Care Education/Training Program
DX: C41.2 Malignant neoplasm of vertebral column (principal)
CPT/HCPCS: 36415; 74019; 80053; 83605; 83690; 85025; 94761; 96374; 99284; 99285; A9270; J1170

== ENCOUNTER 2023-10-26 08:51 | Outpatient (CLI) | payer MEDICARE, SELFPAY | END 2023-10-26 08:52 | disposition home or self-care (01) | LOC: AMB 10-28 02:46 | PROVIDERS: PCP Student in an Organized Health Care Education/Training Program; Visit Provider Emergency Medicine Emergency Medical Services | DX: M54.9 Dorsalgia, unspecified (principal) | CPT/HCPCS: A0425; A0427 ==

== ENCOUNTER 2023-10-26 09:27 | Emergency (ER) | payer MEDICARE, SELFPAY ==
[2023-10-26 09:35] VITALS: BP 147/89; PULSE 94; RESP 18; TEMP 36.6; O2SAT 95; BMI 24.4
--- NOTE | 2023-10-26 10:14 | ED_ITS ---
HPI - Back Pain/Injury General Chief Complaint: Back Injury/Pain Stated Complaint: back pain Time Seen by Provider: 10/26/23 09:52 History of Present Illness HPI Narrative: This 88-year-old male comes in with severe low back pain. 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 He is considering joining hospice care but is not currently enrolled in that program. He states that he has much worse pain since getting into a tub yesterday. He is currently taking OxyContin 30 mg and oxycodone as needed. He did receive fentanyl 50 mg in route here. He states that he does get up and ambulate but has to wear a belt around his waist for lumbar support. Today he has not been able to get up because of increased pain. Related Data Home Medications Medication Instructions Recorded Confirmed lorazepam 0.5 mg tablet PO 10/26/23 methocarbamol 750 mg tablet 750 mg PO 3XD 10/26/23 10/26/23 oxycodone 10 mg tablet mg PO 10/26/23 Previous Rx's Medication Instructions Recorded hydromorphone 2 mg tablet 2 mg PO Q4-6H PRN pain #20 tabs 08/22/23 (Dilaudid) hydromorphone 2 mg tablet 2 mg PO Q6H #20 tabs 10/26/23 (Dilaudid) Allergies Allergy/AdvReac Type Severity Reaction Status Date / Time No Known Allergies Allergy Verified 08/22/23 13:10 Review of Systems Status of ROS: Reports: 10 or more systems reviewed and unremarkable except as noted in History and below Narrative: Constitutional: No fevers, no weight gain or loss. Eyes: No discharge. No vision changes. HENT: No congestion, no sore throat, no ear pain. Cardiovascular: No chest pain, no palpitations. Respiratory: No shortness of breath, no wheezes, no cough. Gastrointestinal: No abdominal pain, no vomiting, no diarrhea. Genitourinary: No dysuria, no hematuria. Musculoskeletal: Chronic low back pain because of metastatic disease to the bone. Skin: No rashes, no pruritis. Neurological: No dizziness, weakness, sensory change, speech change. Endo/Heme/Allergies: No bruising or bleeding. No polydipsia. Pysch: no suicidality, no anxiety, no insomnia. All other systems reviewed and are negative. PFSH PFSH Social History Smoking Status: Former smoker Do you use any of these nicotine containing products: None Second hand tobacco smoke exposure: No How often do you have a drink containing alcohol: never AUDIT-C Alcohol total score: 0 Non-prescribed substance use: denies use service: No Exam Narrative: Exam Narrative: Constitutional: Well-developed, well-nourished, no acute distress. HEENT: Normocephalic, atraumatic. Neck: Normal range of motion. Nontender. Supple. Heart: Regular. No murmurs. Normal rate. Intact distal pulses. Lungs: Clear to auscultation. No chest discomfort. No wheezes, rhonchi, or rales. Abdomen: Normal bowel sounds. Nontender. No rebound tenderness. Genitalia: Deferred. Back: Diffuse low back pain which is chronic. Extremities: Normal range of motion. No injury. Skin: Intact. No rash. Warm. No erythema or pallor. Neurologic: No altered sensation. No weakness. Alert and oriented. He is able to move all extremities. Psychiatric: No suicidality. No anxiety or depression. No insomnia. Nursing notes and vitals signs are reviewed. Const: Vital Signs, click to edit/add: Vital Signs - 24 hr 10/26/23 09:35 Temperature 97.8 F Pulse Rate [Right Pulse Oximeter] 94 Respiratory Rate 18 Blood Pressure [Ri ght Upper Arm] 147/89 H Pulse Oximetry 95 Oxygen Delivery Me thod Room Air Course Vital Signs Vital signs: Initial Vital Signs Temperature 97.8 F 10/26/23 09:35 Temperature Source Temporal Artery Scan 10/26/23 09:35 Pulse Rate 94 10/26/23 09:35 Respiratory Rate 18 10/26/23 09:35 Blood Pressure 147/89 H 10/26/23 09:35 Blood Pressure Mean 108 H 10/26/23 09:35 Blood Pressure Position Sitting 10/26/23 09:35 Pulse Oximetry 95 10/26/23 09:35 Oxygen Delivery Method Room Air 10/26/23 09:35 Vital Signs Temperature 97.8 F 10/26/23 09:35 Pulse Rate 94 10/26/23 09:35 Respiratory Rate 18 10/26/23 09:35 Blood Pressure 147/89 H 10/26/23 09:35 Pulse Oximetry 95 10/26/23 09:35 Oxygen Delivery Method Room Air 10/26/23 09:35 Temperature 97.8 F 10/26/23 09:35 Pulse Rate 94 10/26/23 09:35 Respiratory Rate 18 10/26/23 09:35 Blood Pressure 147/89 H 10/26/23 09:35 Pulse Oximetry 95 10/26/23 09:35 Oxygen Delivery Method Room Air 10/26/23 09:35 Medications Administered Medications: Discontinued Medications Generic Name Dose Route Start Last Admin Trade Name Aguilar PRN Reason Stop Dose Admin Hydromorphone HCl 1 mg 10/26/23 10:14 10/26/23 10:50 Hydromorphone 0.5 Mg/0.5 Ml Inj IVP 10/26/23 10:15 1 mg ONCE ONE Administration Hydromorphone HCl 1 mg 10/26/23 10:55 10/26/23 11:08 Hydromorphone 0.5 Mg/0.5 Ml Inj IVP 10/26/23 10:56 1 mg ONCE ONE Administration MDM - Back Pain/Injury MDM Narrative Medical decision making narrative: This patient has small cell lung cancer with metastatic disease to his bone and liver and has chronic pain related to that. He is taking OxyContin and oxycodone but has much worse pain today after getting into a tub for some physical therapy yesterday. I did discuss the role of CT imaging or x-ray imaging but the patient states that he is planning to of enroll with hospice care and seeing that imaging is not connect change any plans he declined any such images today. An IV was established by ambulance EN route here. He did receive a mg of Dilaudid intravenously and this brought some relief to his pain but not sufficient relief. About an hour later he received another 1 mg dose. The patient is developing some tolerance to opiates as is typical with chronic use. He is maintaining normal vital signs. He did not have any decreased respiratory drive or sign of hypotension or other abnormality with these treatments. He is okay to be [facility] and plans to enroll in hospice very soon. I did provide prescription for Dilaudid for additional pain relief and encouraged him to follow up with his physician or with hospice care for ongoing management of pain meds. Discharge Plan Discharge Clinical Impression: Small cell lung cancer, Chronic back pain Patient Disposition: [facility] Condition: Stable Additional Instructions: Take medications as needed and directed. Follow up with MD as needed. Return if worsening. Prescriptions: New hydromorphone [Dilaudid] 2 mg tablet 2 mg PO Q6H Qty: 20 0RF No Action lorazepam 0.5 mg tablet PO methocarbamol 750 mg tablet 750 mg PO 3XD oxycodone 10 mg tablet PO hydromorphone [Dilaudid] 2 mg tablet 2 mg PO Q4-6H PRN (Reason: pain) Qty: 20 0RF Stand Alone Forms: [facility] Info Instructions
[2023-10-26] MEDS: HYDROmorphone 0.5 mg/0.5 ml inj 1 MG IVP ×2 (10:50→11:08)
[2023-10-26 12:04] VITALS: BP 125/77; PULSE 87; RESP 18; O2SAT 95
== END 2023-10-26 12:08 | disposition home or self-care (01) ==
PROVIDERS: Emergency Provider Emergency Medicine Emergency Medical Services; PCP Student in an Organized Health Care Education/Training Program
DX: C34.90 Malignant neoplasm of unspecified part of unspecified bronchus or lung (principal); M54.9 Dorsalgia, unspecified; G89.29 Other chronic pain
CPT/HCPCS: 99283; 99284; J1170

== ENCOUNTER 2023-10-26 11:54 | Outpatient (CLI) | payer MEDICARE, SELFPAY | END 2023-10-26 11:55 | disposition home or self-care (01) | LOC: AMB 11-06 00:40 | PROVIDERS: PCP Student in an Organized Health Care Education/Training Program; Visit Provider Emergency Medicine Emergency Medical Services | DX: M54.9 Dorsalgia, unspecified (principal) | CPT/HCPCS: A0425; A0428 ==